=== PATIENT | male | born 1980 | race Hispanic/Latino ===

== ENCOUNTER 2018-09-29 12:34 | Emergency (ER) | payer OTHER ==
[~2018-09-29] VITALS: Ht 167.6 cm; Wt 77.3 kg
[2018-09-29 13:37] LABS: HEMATOCRIT 43.4 % (39.0-50.0); HEMOGLOBIN 14.4 g/dl (14.0-18.0); MEAN CELL VOLUME 93.3 fL CALC (80.0-100.0); RED BLOOD COUNT 4.65 mill/uL (4.70-6.10)
[2018-09-29 13:38] LABS: ANION GAP 11 (6-22 (CALC)); BUN 14 mg/dL (9-20); BUN/CREATININE RATIO 19 (12-20 (CALC)); CARBON DIOXIDE 30 mmol/l (22-30); CHLORIDE 106 mmol/l (95-108); CREATININE 0.8 mg/dL (0.7-1.3); GFR > 60 ML/MIN (>=60 (CALC)); GFR FOR AFR.AMER. > 60 ML/MIN (>=60 (CALC)); MEAN CORPUSCULAR HGB CONC 33.2 g/L CALC (32.0-36.0); PLATELET COUNT 221 thou/uL (130-400); POTASSIUM 4.3 mmol/l (3.5-5.1); RED CELL DISTRI WIDTH 12.1 % (11.5-15.5); SODIUM 143 mmol/l (137-146)
[2018-09-29 14:03] LABS: BASO% 0 % (0-3); EOS% 3 % (0-8); LYMPH% 17 % (15-41); MONO% 3 % (2-13); NEUT% 77 % (42-76)
[2018-09-29 14:13] VITALS: BP 131/73
== END 2018-09-29 14:10 | disposition home or self-care (01) | DRG 90 ==
LOC: ED 12:34
PROVIDERS: Family Medicine
DX: S06.0X9A Concussion with loss of consciousness of unspecified duration, initial encounter (principal); W22.8XXA Striking against or struck by other objects, initial encounter; Y93.89 Activity, other specified; Y92.89 Other specified places as the place of occurrence of the external cause; Y99.0 Civilian activity done for income or pay